=== PATIENT | male | born 1975 | race Two or more races ===

== ENCOUNTER 2016-06-05 14:20 | Emergency (ER) | payer OTHER ==
--- NOTE | ~2016-06-05 | EKG ---
PATIENT: MARK BRAY UNIT #: [id number] Ventricular Rate: 66 BPM Atrial Rate: 66 BPM P-R Interval: 146 ms QRS Duration: 94 ms Q-T Interval: 362 ms QTC Calculation(Bezet): 379 ms P Com[place]: 75 degrees Calculated R Como: 65 degrees Calculated T Como: 62 degrees Diagnosis Line: Normal sinus rhythm Diagnosis Line: Normal ECG Diagnosis Line: When compared with ECG of 07-NOV-2015 11:38, Diagnosis Line: No significant change was found Diagnosis Line: Confirmed by CRUZITO MAE MD ([id number]) on 06/06/2016 Diagnosis Line: 11:16:43 PM INTERPRETING MD: CARMELITA PANCHAL
--- NOTE | ~2016-06-05 | CR2 ---
[facility] A Service of [facility] RADIOLOGY TEXT RESULTS PATIENT: MARK BRAY LOCATION: [facility] : 79 UNIT #: [id number] AGE: [address]: Ramón Velasco MD SEX: M ORDER DR: [id number] [facility] [address] [place], [place] [address] [id number] E MR#: [id number] Acc #: [id number] NAME: MARK BRAY : 1975 SEX: M STUDY DATE/TIME: 06/05/2016 13:26 UNIT: ALBERT ROOM: STUDY DESCRIPTION: CR Abdomen Acute Series Attending Physician: Ramón Velasco M.D. Ordering Physician: Ed Doc Ayla Cedeno Primary Care Physician: No Primary Care Physician MEDICAL IMAGING REPORT This report is preliminary unless electronic signature is present EXAM Acute abdomen series, 06/05/2016, 1326 hours. CLINICAL HISTORY 2-day history of diffuse abdominal pain with vomiting and shortness of air. COMPARISON Chest film, 11/07/2015. FINDINGS Upright view of the chest demonstrates normal cardiac, mediastinal, and hilar contours. There is linear scar at the left base without change. There is patchy density at the medial right lung base which is new or increased. This could represent atelectasis or pneumonia. Supine and upright views of the abdomen demonstrate no definite small bowel or colonic distension or wall thickening. No suspicious calcifications. IMPRESSION 1. Minimally increased density at the medial right lung base increased over the prior study which could represent pneumonia or atelectasis. The lungs are otherwise clear. 2. No evidence of bowel distension of bowel wall thickening. No obstruction or suspicious calcifications. Dictated by... Jasmyne Cardoza M.D. THIS IS AN ELECTRONICALLY VERIFIED REPORT Jasmyne Cardoza M.D. at 06/05/2016 5:46 PM [facility] A Service of [facility] RADIOLOGY TEXT RESULTS PATIENT: MARK BRAY LOCATION: [facility] : 79 UNIT #: [id number] AGE: [address]: Ramón Velasco MD SEX: M ORDER DR: WILLIAN/lurdes TD: 06/05/2016 15:23 JOB #: [id number] MEDICAL IMAGING REPORT Page 1 of 1 COPY
[2016-06-05 12:11] LABS: URINE SOURCE CLEAN CATCH
[2016-06-05 12:19] LABS: BASOPHIL% 0.6 % (0-2.5); EOSINOPHIL# 0.1 X10e3 (0-0.7); EOSINOPHIL% 1.7 % (0.0-7.0); HEMATOCRIT 46.7 % (38.0-50.0); HEMOGLOBIN 15.6 gm/dL (13.0-16.0); MEAN CELL VOLUME 85.8 FL (83-96); MEAN CORPUSCULAR HEMOGLOBIN 28.7 PG (28-34); MEAN CORPUSCULAR HGB CONC 33.5 g/dL (30-36); MEAN PLATELET VOLUME 8.8 FL (6.5-11.5); MONOCYTE# 0.7 X10e3 (0-1.0); MONOCYTE% 8.3 % (3.0-12.0); NEUTROPHIL# 4.6 X10e3 (1.5-7.1); NEUTROPHIL% 54.4 % (40-75); PLATELET COUNT 165 X10e3 (140-420); RED BLOOD COUNT 5.44 X10e (3.90-5.60); RED CELL DISTRIBUTION WIDTH 12.8 % (11.0-15.5); WHITE BLOOD COUNT 8.5 X10e3 (4.0-10.5)
[2016-06-05 12:21] LABS: DIFF IND NO
[2016-06-05 12:52] LABS: URINE APPEARANCE CLEAR; URINE BILIRUBIN NEG (NEG); URINE BLOOD NEG (NEG); URINE COLOR YELLOW; URINE GLUCOSE NORM (NORM); URINE KETONE NEG (NEG); URINE LEUKOCYTE ESTERASE NEG (NEG); URINE NITRATE NEG (NEG); URINE PROTEIN NEG (NEG); URINE SPECIFIC GRAVITY 1.015 (1.003-1.035); URINE UROBILINOGEN NORM (NORM)
[2016-06-05 12:56] LABS: CULTURE INDICATED? NO
[2016-06-05 13:01] LABS: ALBUMIN SERUM 4.5 g/dL (3.5-5.0); BILIRUBIN, DIRECT 0.1 mg/dL (0.0-0.2); BILIRUBIN,INDIRECT 0.7 mg/dL (0.0-0.9); BILIRUBIN,TOTAL 0.8 mg/dL (0.2-2.0); BUN/CREATININE RATIO 16.25; CALCIUM SERUM 9.6 mg/dL (8.4-10.2); CREATININE SERUM 0.8 mg/dL (0.6-1.4); GLOM FILT RATE Estimated 112.6 mL/min (>60); POTASSIUM 4.1 mmol/L (3.5-5.1); PROTEIN TOTAL SERUM 6.9 g/dL (6.0-8.3)
[~2016-06-05 14:20] MED LIST: ALBUTEROL17 GM INH; BENZONATATE PO; BETAMETHASONE PO; BRETHINE2.5 M1 PO; BRETHINE2.5 MG PO; CEFDINIR300 M1 PO; CLARITIN10 M3 PO; DIABETIC S100 MG/5 M PO; FLAGYL PO; INHALER; METRONIDAZOLE250 MG PO; MONTELUKAST SOD10 MG PO; NO MEDICATIONS; NYSTATIN5 ML PO; OMNICEF300 MG PO; PREDNISONE10 MG PO; PROVENTIL0.83 MG/ML INH; SYMBICORT INH; ZITHROMAX500 MG PO; ZOFRAN PO; ZYRTEC10 M2 PO; [UNRECOGNIZED DRUG - OTHER] PO
== END 2016-06-05 15:37 | disposition home or self-care (01) ==
LOC: CED 14:20
PROVIDERS: Emergency Medicine
DX: R10.9 Unspecified abdominal pain (principal); R11.2 Nausea with vomiting, unspecified; J45.909 Unspecified asthma, uncomplicated; E11.9 Type 2 diabetes mellitus without complications
CPT/HCPCS: 36415; 74022; 80048; 80076; 81003; 83690; 85025; 93005; 99284

== ENCOUNTER 2016-07-29 23:14 | Emergency (ER) | payer OTHER | END 2016-07-30 01:20 | disposition left against medical advice (07) | LOC: CED 23:14 | DX: Z53.21 Procedure and treatment not carried out due to patient leaving prior to being seen by health care provider (principal) ==

== ENCOUNTER 2016-07-30 12:39 | Emergency (ER) | payer OTHER | END 2016-07-30 15:45 | disposition home or self-care (01) | LOC: CED 12:39 | DX: R21 Rash and other nonspecific skin eruption (principal); H10.9 Unspecified conjunctivitis; J45.909 Unspecified asthma, uncomplicated; E11.9 Type 2 diabetes mellitus without complications; Z87.891 Personal history of nicotine dependence | CPT/HCPCS: 99283 ==

== ENCOUNTER 2016-07-31 23:00 | Emergency (ER) | payer OTHER | END 2016-08-01 04:25 | disposition home or self-care (01) | LOC: CED 23:00 | DX: L23.7 Allergic contact dermatitis due to plants, except food (principal); E11.9 Type 2 diabetes mellitus without complications; J45.909 Unspecified asthma, uncomplicated | CPT/HCPCS: 99282 ==

== ENCOUNTER 2016-09-09 09:53 | Emergency (ER) | payer OTHER ==
--- NOTE | ~2016-09-09 | CR63 ---
[facility] A Service of [facility] RADIOLOGY TEXT RESULTS PATIENT: MARK BRAY LOCATION: [facility] : 79 UNIT #: [id number] AGE: [address]: Lizbet Ren APRN SEX: M ORDER DR: [id number] [facility] [address] [place], [place] [address] [id number] E MR#: [id number] Acc #: [id number] NAME: MARK BRAY : 1975 SEX: M STUDY DATE/TIME: 09/09/2016 10:47 UNIT: TX ROOM: STUDY DESCRIPTION: CR Chest 2 View Attending Physician: Lizbet Ren A.P.R.N. Ordering Physician: Ed Yaniv Cedeno M.D. Primary Care Physician: No Primary Care Physician MEDICAL IMAGING REPORT This report is preliminary unless electronic signature is present EXAM Chest x-ray, two views. CLINICAL HISTORY Short of air, cough, congestion for [id number] days. COMMENT Two views of the chest reviewed. COMPARISON There is comparison from 11/07/2015. FINDINGS There is no pleural effusion. The heart size is normal. There are probably prominent fat pads at the inferior right and left heart borders unchanged from previous. No acute infiltrate is appreciated. No acute congestive failure or pneumothorax. IMPRESSION No acute-appearing parenchymal infiltrate. No active disease is seen in the chest. Dictated by... Kary Bella M.D. THIS IS AN ELECTRONICALLY VERIFIED REPORT Kary Bella M.D. at 09/10/2016 7:25 AM DANNY/alejo TD: 09/09/2016 21:17 JOB #: [id number] [facility] A Service [facility] RADIOLOGY TEXT RESULTS PATIENT: MARK BRAY LOCATION: [facility] : 79 UNIT #: [id number] AGE: [address]: Lizbet Ren APRN SEX: M ORDER DR: MEDICAL IMAGING REPORT Page 1 of 1 COPY
== END 2016-09-09 11:46 | disposition home or self-care (01) ==
LOC: CFTX 09:53 → CED 09:53 → CFTX 11:09
DX: J02.9 Acute pharyngitis, unspecified (principal); J45.901 Unspecified asthma with (acute) exacerbation; R03.0 Elevated blood-pressure reading, without diagnosis of hypertension; E11.9 Type 2 diabetes mellitus without complications
CPT/HCPCS: 71020; 87651; 94640; 99283

== ENCOUNTER 2016-09-23 10:21 | Emergency (ER) | payer OTHER | END 2016-09-23 11:17 | disposition home or self-care (01) | LOC: CFTX 10:21 → CED 10:21 → CFTX 11:12 | DX: B86 Scabies (principal); H10.10 Acute atopic conjunctivitis, unspecified eye; E11.9 Type 2 diabetes mellitus without complications; J45.909 Unspecified asthma, uncomplicated | CPT/HCPCS: 99282 ==